=== PATIENT | female | born 1965 | race Two or more races ===

== ENCOUNTER 2020-03-01 17:24 | Inpatient (IN) | payer MEDICAID, OTHER ==
[~2020-03-01] VITALS: Ht 149.9 cm; Wt 99.8 kg
[2020-03-01] MEDS ORDERED: methylPREDNISolone SOD SUCC 125 MG/2 ML VL IM ONE (19:00)
[2020-03-01 19:33] LABS: Basophils # (auto) 0 10 ^3/uL (0-0.2); Basophils % (auto) 0.4 % (0.0-2.0); Eosinophils # (auto) 0 10 ^3/uL (0-0.8); Eosinophils % (auto) 0.2 % (0.0-7.0); Hematocrit 39.5 % (36.0-46.0); Hemoglobin 13.9 g/dL (12.2-16.2); Lymphocytes # (auto) 1.4 10 ^3/uL (0.4-5.4); Lymphocytes % (auto) 14.3 % (10.0-50.0); Mean Corpuscular Hemoglobin 32.7 pg (28.0-32.0); Mean Corpuscular Hgb Conc. 35.2 g/dL (32.0-36.0); Monocytes # (auto) 0.6 10 ^3/uL (0-1.3); Monocytes % (auto) 6.1 % (0.0-12.0); Neutrophils # (auto) 7.8 10 ^3/uL (1.6-8.6); Nucleated Red Blood Cells % 0.1 %; Platelet Count (auto) 113 10^3/uL (140-450); Red Blood Cells 4.25 10^6/uL (4.0-5.20); Red Cell Distribution Width 14.1 % (11.8-14.3); White Blood Cell 9.9 10^3/uL (4.4-10.8)
[2020-03-01 19:53] LABS: Albumin 3.4 g/dL (3.4-5.0); BUN/Creatinine Ratio 12.5; Calcium 8.3 mg/dL (8.5-10.1); Potassium 3.1 mmol/L (3.5-5.1)
[2020-03-01 19:59] LABS: Bilirubin, Total 2.6 mg/dL (0.2-1.0); Total Protein 7.9 g/dL (6.4-8.2)
[2020-03-01] MEDS ORDERED: PANTOPRAZOLE 40 MG TAB PO ONE (23:30)
[2020-03-01] MEDS ORDERED: KETOROLAC TROMETH 60MG/2ML VIAL IM ONE (23:45)
[2020-03-02] MEDS ORDERED: ASPirin 81 mg TAB PO ONE (02:45)
[2020-03-02 07:31] LABS: INR 1.1 (0.9-1.15); Partial Thromboplastin Time 27.2 sec (23.0-31.2)
[2020-03-02 08:12] VITALS: BP 167/95
--- NOTE | 2020-03-02 08:12 | NUR ---
Respiratory note: PT ASSESSED FOR PRN TX. HR 104, RR 19, POX 96% ON RA, BS ARE CLEAR/DIMINISHED. NO SOB OR DISTRESS NOTED. NOTIFY PT TO PAGE RT FOR [place] TX.
[2020-03-02] MEDS ORDERED: MORPHINE SULF INJ 2 MG/ML SYRINGE 1ML IV PRN (10:00)
[2020-03-02] MEDS ORDERED: ATORVASTATIN 20 MG TAB PO SCH (10:00)
[2020-03-02] MEDS ORDERED: ONDANSETRON HCL 4 MG/2 ML VIAL IV PRN (10:00)
[2020-03-02] MEDS ORDERED: ALBUTEROL SULF 2.5 MG/0.5ML(0.5%) NEB SOLN NEB PRN (10:00)
[2020-03-02] MEDS ORDERED: ASPirin 81 mg TAB PO SCH (10:00)
[2020-03-02] MEDS ORDERED: ENOXAPARIN SOD 100 MG/1 ML SYRINGE SC SCH (10:00)
[2020-03-02] MEDS ORDERED: POTASSIUM CHL 20MEQ/100ML 100 ML IV ONE ×2 (15:30→15:33)
[2020-03-02] MEDS ORDERED: POTASSIUM EFFERVESENT TAB 25 MEQ PO ONE (15:30)
[2020-03-02] MEDS ORDERED: ALBU108A5 IN (15:44)
[2020-03-02] MEDS ORDERED: LEVO-28 PO (15:44)
[2020-03-02] MEDS ORDERED: PRED20TA2 PO (15:44)
[2020-03-02] MEDS ORDERED: levoFLOXacin 500 MG TAB PO SCH (15:45)
[2020-03-02] MEDS ORDERED: methylPREDNISolone SOD SUCC 125 MG/2 ML VL IV ONE (15:45)
[2020-03-02 20:53] VITALS: BP 158/47
[2020-03-03] MEDS ORDERED: predniSONE 20 MG TAB PO SCH (10:00)
[2020-03-03] MEDS ORDERED: ENOXAPARIN SOD 40 MG/0.4 ML SYRINGE SC SCH (10:00)
== END 2020-03-02 21:00 | disposition home or self-care (01) | DRG 141 ==
LOC: ER 17:24 → TELE 17:25
PROVIDERS: ADMIT Hospitalist; ATTEND Hospitalist
DX: J45.901 Unspecified asthma with (acute) exacerbation (principal); J96.01 Acute respiratory failure with hypoxia; I10 Essential (primary) hypertension; K21.0 Gastro-esophageal reflux disease with esophagitis; Z68.41 Body mass index [BMI] 40.0-44.9, adult; E87.6 Hypokalemia; R79.89 Other specified abnormal findings of blood chemistry; E66.01 Morbid (severe) obesity due to excess calories; Z79.899 Other long term (current) drug therapy
CPT/HCPCS: 36415; 71045; 76705; 80053; 82550; 83690; 83880; 84132; 84484; 85025; 85379; 85610; 85730; 93005; 93306; G0378; J1885; J3480

== ENCOUNTER 2022-10-15 22:43 | Inpatient (IN) | payer MEDICAID ==
[~2022-10-15] VITALS: Ht 149.9 cm; Wt 94.1 kg
[~2022-10-15 22:43] MED LIST: ALBU108A5 IN; LEVO-28 PO; PRED20TA2 PO
[2022-10-15 23:54] LABS: Urine Bacteria MOD /hpf (None Seen); Urine Blood TRACE /uL (Negative); Urine Mucus FEW (None Seen); Urine Specific Gravity 1.039 (1.001-1.035); Urine WBC 1 /hpf (0 - 5)
[2022-10-16 00:01] LABS: Basophils # (auto) 0 10 ^3/uL (0-0.2); Basophils % (auto) 0.1 % (0.0-2.0); Eosinophils # (auto) 0 10 ^3/uL (0-0.8); Hematocrit 44.2 % (36.0-46.0); Hemoglobin 15.4 g/dL (12.2-16.2); Lymphocytes # (auto) 0.4 10 ^3/uL (0.4-5.4); Lymphocytes % (auto) 2.5 % (10.0-50.0); Mean Corpuscular Hemoglobin 32.5 pg (28.0-32.0); Mean Corpuscular Hgb Conc. 34.8 g/dL (32.0-36.0); Mean Corpuscular Volume 93.4 fL (80.0-100.0); Monocytes # (auto) 0.5 10 ^3/uL (0-1.3); Neutrophils # (auto) 15.1 10 ^3/uL (1.6-8.6); Neutrophils % (auto) 94.4 % (37.0-80.0); Nucleated Red Blood Cells % 0.1 %; Red Blood Cells 4.73 10^6/uL (4.0-5.20); Red Cell Distribution Width 13.7 % (11.8-14.3)
[2022-10-16 00:12] LABS: Albumin 3.4 g/dL (3.4-5.0); BUN/Creatinine Ratio 16.7 (10.0-20.0); Calcium 9.3 mg/dL (8.5-10.1); Potassium 3.8 mmol/L (3.5-5.1)
[2022-10-16 00:15] LABS: Bilirubin, Total 3.4 mg/dL (0.2-1.0); Total Protein 7.5 g/dL (6.4-8.2)
[2022-10-16] MEDS ORDERED: MORPHINE SULFATE 4 MG/ML SYR/VIAL IV ONE (02:30)
[2022-10-16] MEDS ORDERED: ASPirin 81 mg TAB PO ONE (02:30)
[2022-10-16] MEDS ORDERED: ONDANSETRON HCL 4 MG/2 ML VIAL IV ONE (02:30)
[2022-10-16] MEDS ORDERED: ENOXAPARIN SOD 100 MG/1 ML SYRINGE SC ONE (02:30)
[2022-10-16] MEDS ORDERED: InsuLIN REG 1unit/0.01ml Soln (100units/ml) IV ONE (02:30)
[2022-10-16] MEDS ORDERED: LACTATED RINGER'S 1,000 ML IV ONE (02:30)
[2022-10-16] MEDS ORDERED: CIPROFLOXACIN 400MG/200ML 200 ML IV ONE (04:45)
[2022-10-16] MEDS ORDERED: metroNIDAZOLE 500MG/100ML 100 ML IV ONE (04:45)
[2022-10-16] MEDS ORDERED: DEXTROSE (50%) 50ML SYRG IV PRN (09:15)
[2022-10-16] MEDS ORDERED: ONDANSETRON HCL 4 MG/2 ML VIAL IV PRN (09:15)
[2022-10-16] MEDS ORDERED: MORPHINE SULFATE INJ 2 MG/ml SYRG IV PRN (09:15)
[2022-10-16 10:11] LABS: INR 1.22 (0.9-1.15)
[2022-10-16] MEDS: SODIUM CHLORIDE 0.9% 1,000 ML IV SCH ×2 (10:43→17:35)
[2022-10-16] MEDS: InsuLIN REG 1unit/0.01ml Soln (100units/ml) SC SCH ×3 (11:34→22:27)
[2022-10-16] MEDS: ACCU-CHEK COMFORT CURVE STRIP VI SCH ×3 (11:35→22:24)
[2022-10-16] MEDS: ASPirin 81 mg TAB PO SCH (11:35)
[2022-10-16 13:30] VITALS: BP 110/62
[2022-10-16] MEDS: metroNIDAZOLE 500MG/100ML 100 ML IV SCH ×2 (14:50→22:10)
[2022-10-16] MEDS ORDERED: LISI-716 PO (14:52)
[2022-10-16] MEDS: HYDROcodone-ACET 5/325MG TAB PO PRN ×2 (15:55→22:09)
[2022-10-16] MEDS: CIPROFLOXACIN 400MG/200ML 200 ML IV SCH (17:40)
[2022-10-16 20:00] VITALS: BP 98/60
[2022-10-16 22:00] VITALS: BP 98/60
[2022-10-17] MEDS: CIPROFLOXACIN 400MG/200ML 200 ML IV SCH ×2 (04:55→17:40)
[2022-10-17 05:00] VITALS: BP 99/48
[2022-10-17] MEDS: SODIUM CHLORIDE 0.9% 1,000 ML IV SCH ×3 (05:04→18:23)
[2022-10-17] MEDS: metroNIDAZOLE 500MG/100ML 100 ML IV SCH ×3 (06:20→22:09)
[2022-10-17] MEDS: ACCU-CHEK COMFORT CURVE STRIP VI SCH ×4 (06:35→22:14)
[2022-10-17] MEDS: InsuLIN REG 1unit/0.01ml Soln (100units/ml) SC SCH ×4 (06:36→22:15)
[2022-10-17 07:08] LABS: Basophils # (auto) 0 10 ^3/uL (0-0.2); Basophils % (auto) 0.3 % (0.0-2.0); Eosinophils # (auto) 0.2 10 ^3/uL (0-0.8); Hemoglobin 12.9 g/dL (12.2-16.2); Lymphocytes # (auto) 1.1 10 ^3/uL (0.4-5.4); Lymphocytes % (auto) 22.5 % (10.0-50.0); Mean Corpuscular Hemoglobin 33.1 pg (28.0-32.0); Mean Corpuscular Hgb Conc. 35.8 g/dL (32.0-36.0); Mean Corpuscular Volume 92.4 fL (80.0-100.0); Monocytes # (auto) 0.5 10 ^3/uL (0-1.3); Monocytes % (auto) 9.5 % (0.0-12.0); Neutrophils # (auto) 3.1 10 ^3/uL (1.6-8.6); Neutrophils % (auto) 63.7 % (37.0-80.0); Nucleated Red Blood Cells % 0.2 %; Red Cell Distribution Width 13.8 % (11.8-14.3); White Blood Cell 4.9 10^3/uL (4.4-10.8)
[2022-10-17 07:29] LABS: Albumin 2.6 g/dL (3.4-5.0); Potassium 3.3 mmol/L (3.5-5.1)
[2022-10-17 07:34] LABS: BUN/Creatinine Ratio 17.9 (10.0-20.0); Bilirubin, Total 2.3 mg/dL (0.2-1.0); Total Protein 5.7 g/dL (6.4-8.2)
[2022-10-17 09:00] VITALS: BP 118/55
[2022-10-17] MEDS: ASPirin 81 mg TAB PO SCH (09:03)
[2022-10-17] MEDS: HYDROcodone-ACET 5/325MG TAB PO PRN ×2 (09:03→21:14)
[2022-10-17] MEDS ORDERED: POTASSIUM CHLORIDE 40 MEQ, LIDOCAINE 1% (LOCAL ANESTH.) 4 ML in SODIUM CHL 0.9% 250 ML IV ONE (11:15)
[2022-10-17 13:00] VITALS: BP 130/67
[2022-10-17 16:00] VITALS: BP 123/61
[2022-10-17 20:00] VITALS: BP 136/51
[2022-10-17 22:00] VITALS: BP 136/51
[2022-10-18] MEDS: SODIUM CHLORIDE 0.9% 1,000 ML IV SCH ×4 (02:55→19:55)
[2022-10-18] MEDS: CIPROFLOXACIN 400MG/200ML 200 ML IV SCH ×2 (04:59→17:10)
[2022-10-18 05:00] VITALS: BP 123/61
[2022-10-18] MEDS: metroNIDAZOLE 500MG/100ML 100 ML IV SCH ×3 (06:15→21:59)
[2022-10-18] MEDS: HYDROcodone-ACET 5/325MG TAB PO PRN ×2 (06:16→21:58)
[2022-10-18 06:17] LABS: Albumin 2.5 g/dL (3.4-5.0); Calcium 7.9 mg/dL (8.5-10.1); Potassium 3.5 mmol/L (3.5-5.1)
[2022-10-18] MEDS: ACCU-CHEK COMFORT CURVE STRIP VI SCH ×4 (06:19→22:02)
[2022-10-18 06:23] LABS: Bilirubin, Total 1.8 mg/dL (0.2-1.0); Total Protein 5.4 g/dL (6.4-8.2)
[2022-10-18 06:26] LABS: Basophils # (auto) 0 10 ^3/uL (0-0.2); Basophils % (auto) 0.4 % (0.0-2.0); Eosinophils # (auto) 0.1 10 ^3/uL (0-0.8); Eosinophils % (auto) 3.2 % (0.0-7.0); Hematocrit 35.4 % (36.0-46.0); Hemoglobin 12.5 g/dL (12.2-16.2); Lymphocytes % (auto) 25.2 % (10.0-50.0); Mean Corpuscular Hemoglobin 32.9 pg (28.0-32.0); Mean Corpuscular Hgb Conc. 35.3 g/dL (32.0-36.0); Mean Corpuscular Volume 93.1 fL (80.0-100.0); Monocytes # (auto) 0.3 10 ^3/uL (0-1.3); Monocytes % (auto) 8.2 % (0.0-12.0); Neutrophils # (auto) 2.6 10 ^3/uL (1.6-8.6); Nucleated Red Blood Cells % 0.4 %; Red Blood Cells 3.81 10^6/uL (4.0-5.20); Red Cell Distribution Width 13.5 % (11.8-14.3); White Blood Cell 4.1 10^3/uL (4.4-10.8)
[2022-10-18] MEDS: InsuLIN REG 1unit/0.01ml Soln (100units/ml) SC SCH ×4 (06:26→22:00)
[2022-10-18 09:00] VITALS: BP 114/62
[2022-10-18] MEDS: ASPirin 81 mg TAB PO SCH (09:44)
[2022-10-18 13:00] VITALS: BP 108/63
[2022-10-18 17:00] VITALS: BP 134/69
[2022-10-18 22:00] VITALS: BP 107/56
[2022-10-19] MEDS: CIPROFLOXACIN 400MG/200ML 200 ML IV SCH ×2 (04:32→17:19)
[2022-10-19 05:00] VITALS: BP 121/64
[2022-10-19] MEDS: metroNIDAZOLE 500MG/100ML 100 ML IV SCH ×3 (05:49→21:37)
[2022-10-19 05:52] LABS: Potassium 3.2 mmol/L (3.5-5.1)
[2022-10-19 05:59] LABS: Albumin 2.7 g/dL (3.4-5.0); BUN/Creatinine Ratio 8.5 (10.0-20.0); Bilirubin, Total 2.5 mg/dL (0.2-1.0); Calcium 8.2 mg/dL (8.5-10.1); Total Protein 5.7 g/dL (6.4-8.2)
[2022-10-19] MEDS: ACCU-CHEK COMFORT CURVE STRIP VI SCH ×4 (06:15→21:38)
[2022-10-19] MEDS: InsuLIN REG 1unit/0.01ml Soln (100units/ml) SC SCH ×4 (06:23→21:38)
[2022-10-19 06:34] LABS: Basophils # (auto) 0 10 ^3/uL (0-0.2); Basophils % (auto) 0.5 % (0.0-2.0); Eosinophils # (auto) 0.1 10 ^3/uL (0-0.8); Eosinophils % (auto) 3.4 % (0.0-7.0); Hematocrit 36.9 % (36.0-46.0); Hemoglobin 13.2 g/dL (12.2-16.2); Lymphocytes # (auto) 0.9 10 ^3/uL (0.4-5.4); Lymphocytes % (auto) 26.1 % (10.0-50.0); Mean Corpuscular Hemoglobin 32.9 pg (28.0-32.0); Mean Corpuscular Hgb Conc. 35.6 g/dL (32.0-36.0); Mean Corpuscular Volume 92.4 fL (80.0-100.0); Monocytes # (auto) 0.4 10 ^3/uL (0-1.3); Monocytes % (auto) 10.6 % (0.0-12.0); Neutrophils # (auto) 2.1 10 ^3/uL (1.6-8.6); Neutrophils % (auto) 59.4 % (37.0-80.0); Nucleated Red Blood Cells % 0.2 %; Red Cell Distribution Width 13.6 % (11.8-14.3); White Blood Cell 3.5 10^3/uL (4.4-10.8)
[2022-10-19] MEDS ORDERED: POTASSIUM CHL 20 Meq TABLET PO ONE (08:15)
[2022-10-19 09:00] VITALS: BP 120/52
[2022-10-19] MEDS: ASPirin 81 mg TAB PO SCH (09:38)
[2022-10-19] MEDS: POTASSIUM CHL 20MEQ/100ML 100 ML IV SCH ×2 (09:40→11:31)
[2022-10-19] MEDS ORDERED: LOPERAMIDE HCL 2 MG CAP/TAB PO PRN (11:45)
[2022-10-19] MEDS: SODIUM CHLORIDE 0.9% 1,000 ML IV SCH ×2 (12:19→14:12)
[2022-10-19 12:30] VITALS: BP 131/58
[2022-10-19 16:45] VITALS: BP 127/64
[2022-10-19 22:00] VITALS: BP 153/70
[2022-10-20 05:00] VITALS: BP 130/54
[2022-10-20] MEDS: CIPROFLOXACIN 400MG/200ML 200 ML IV SCH (05:21)
[2022-10-20] MEDS: SODIUM CHLORIDE 0.9% 1,000 ML IV SCH (05:21)
[2022-10-20] MEDS: metroNIDAZOLE 500MG/100ML 100 ML IV SCH (06:32)
[2022-10-20] MEDS: ACCU-CHEK COMFORT CURVE STRIP VI SCH ×2 (06:33→16:13)
[2022-10-20] MEDS: InsuLIN REG 1unit/0.01ml Soln (100units/ml) SC SCH ×2 (06:39→11:30)
[2022-10-20] MEDS: ASPirin 81 mg TAB PO SCH (09:15)
[2022-10-20 09:17] VITALS: BP 124/60
[2022-10-20 12:00] LABS: Hepatitis A Total Antibody Negative (Negative)
[2022-10-20] MEDS ORDERED: metFORMIN HYDROCHLORIDE 500 MG TAB PO ONE (12:00)
[2022-10-20 12:05] LABS: Hepatitis B Surface Antibody Positive (Negative)
[2022-10-20] MEDS ORDERED: SITA50TA PO (12:05)
[2022-10-20] MEDS ORDERED: METF-370 PO (12:05)
[2022-10-20] MEDS ORDERED: METR500T PO (12:05)
[2022-10-20 12:08] LABS: Hepatitis B Surface Antibody Positive (Negative)
[2022-10-20 12:11] LABS: Hepatitis A Total Antibody Negative (Negative)
[2022-10-20 12:34] VITALS: BP 117/60
[2022-10-20 13:36] LABS: Hepatitis C Antibody Negative (Negative)
[2022-10-20 14:36] LABS: Hepatitis A Ab IgM Negative; Hepatitis B Core IgM Negative
[2022-10-20 14:37] LABS: Hepatitis C Antibody Negative (Negative)
[2022-10-20 16:39] VITALS: BP 139/69
== END 2022-10-20 16:53 | disposition home or self-care (01) | DRG 248 ==
LOC: ER 22:43 → TELE 10-16 09:25 → TELE-WESTW 10-16 12:47
PROVIDERS: ADMIT Nurse Practitioner Family; ATTEND Internal Medicine
DX: A04.9 Bacterial intestinal infection, unspecified (principal); D68.9 Coagulation defect, unspecified; D69.6 Thrombocytopenia, unspecified; E86.0 Dehydration; K74.60 Unspecified cirrhosis of liver; I10 Essential (primary) hypertension; E66.01 Morbid (severe) obesity due to excess calories; K21.9 Gastro-esophageal reflux disease without esophagitis; J45.909 Unspecified asthma, uncomplicated; R00.0 Tachycardia, unspecified; E11.65 Type 2 diabetes mellitus with hyperglycemia; E87.6 Hypokalemia; Z90.49 Acquired absence of other specified parts of digestive tract; Z68.41 Body mass index [BMI] 40.0-44.9, adult; Z79.84 Long term (current) use of oral hypoglycemic drugs; R77.8 Other specified abnormalities of plasma proteins
CPT/HCPCS: 36415; 74176; 76705; 80053; 80074; 81001; 82728; 82962; 83036; 83690; 83735; 84484; 85025; 85379; 85610; 86038; 86704; 86706; 86708; 86803; 87045; 87340; 87427; 87493; 93005; 93306; 96361; 96365; 96368; 96372; 96375; 99291; G0378; J1815; J2001; J2405; J3480; J3490

== ENCOUNTER → 2023-10-22 | Outpatient (CLI) | payer MEDICAID ==
[~2023-10-22] MED LIST changes: -LEVO-28 PO; +LEVO500T91 PO; +LISI10TA34 PO; +METF-370 PO; +METR500T PO; +SITA50TA PO
== END | disposition home or self-care (01) ==
LOC: Rad HDHVI 08:08
PROVIDERS: ATTEND Internal Medicine Cardiovascular Disease
DX: Z01.818 Encounter for other preprocedural examination (principal); I34.0 Nonrheumatic mitral (valve) insufficiency
CPT/HCPCS: 93306

== ENCOUNTER → 2023-11-03 | Outpatient (CLI) | payer MEDICAID ==
[~2023-11-03] VITALS: Ht 149.9 cm; Wt 86.2 kg
== END | disposition home or self-care (01) ==
LOC: Rad HDHVI 12:46
PROVIDERS: ATTEND Internal Medicine Cardiovascular Disease
DX: Z01.810 Encounter for preprocedural cardiovascular examination (principal); R94.31 Abnormal electrocardiogram [ECG] [EKG]; I10 Essential (primary) hypertension; E11.9 Type 2 diabetes mellitus without complications; R06.02 Shortness of breath; R42 Dizziness and giddiness; Z82.49 Family history of ischemic heart disease and other diseases of the circulatory system
CPT/HCPCS: 78452; 93017; 96374; A9500